=== PATIENT | male | born 2000 | race Caucasian/White ===

== ENCOUNTER 2020-04-02 20:01 | Emergency (ER) | payer BC, MEDICAID, SELFPAY ==
[2020-04-02 20:04] VITALS: BP 161/102; PULSE 105; RESP 18; TEMP 36.8; O2SAT 97; BMI 29.4
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
[2020-04-02 21:01] VITALS: PULSE 78
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
== END 2020-04-02 21:26 | disposition home or self-care (01) ==
PROVIDERS: Emergency Provider Nurse Practitioner Family
DX: S80.02XA Contusion of left knee, initial encounter (principal); V89.2XXA Person injured in unspecified motor-vehicle accident, traffic, initial encounter; F17.210 Nicotine dependence, cigarettes, uncomplicated
CPT/HCPCS: 12345; 73562; 99281; 99283

== ENCOUNTER → 2025-03-24 13:51 | Outpatient (BNVA) | payer OTHER, SELFPAY | DX: Z76.89 Persons encountering health services in other specified circumstances (principal) | CPT/HCPCS: 80053; 81000; 83036 ==

== ENCOUNTER → 2025-04-02 10:51 | Outpatient (BNVA) | payer OTHER, SELFPAY | DX: R35.0 Frequency of micturition (principal) | CPT/HCPCS: 81000; 87086; 87491; 87591; 87661; G0103 ==

== ENCOUNTER 2025-05-10 18:37 | Emergency (ER) | payer SELFPAY ==
[2025-05-10 18:54] VITALS: BP 127/82; PULSE 58; RESP 18; TEMP 36.7; O2SAT 96; BMI 27.1
--- NOTE | 2025-05-10 19:52 | ED_ITS ---
HPI - Nausea/Vomiting/Diarrhea 2 General: Chief complaint: Headache Stated complaint: n/v Time Seen by Provider: 05/10/25 19:36 Source: patient Mode of arrival: ambulatory Limitations: no limitations History of Present Illness: Patient is a 24-year-old male presents to ED today with a complaint of nausea and vomiting as well as a headache. He states nausea and vomiting have been present since earlier today. He has had approximately 4-5 episodes of nonbloody emesis. Looking at previous documentation, he saw Dr. Jimenez on 03/18 with a complaint of nausea and vomiting that had been ongoing over the past 8 weeks. He was placed on pantoprazole at that visit as well as nausea meds but states he just vomits them up. He was told he could have an ulcer which he doesn't believe because he never has abdominal pain with it. Patient states he is not having any abdominal pain currently. He reports normal bowel movements. He does report some urinary frequency that he has seen a primary care provider for as well. He states currently he has a headache. He states sometimes he will get headaches that he attributes to lack of caffeine. States he used to drink 12 sodas a day but has cut back to 5-6. States he has not had any caffeine today. Vital signs are stable upon arrival. Patient does use marijuana habitually-does state hot baths/showers help with his nausea. MD elicited complaint: nausea and vomiting Onset (ago): hour(s) Description of vomiting: food contents and watery Associated nausea: Yes Associated abdominal pain: No Location of pain: None Severity: moderate Exacerbating factors: none Relieving factors: none Associated symtoms: Reports headache(s) and nausea; Denies change in vision, chest pain, dizziness, dysuria, fatigue, malaise, palpitations or syncope Related Data Previous Rx's ?Medication ?Instructions ?Recorded pantoprazole 20 mg tablet,delayed 20 mg PO BID #60 tab s 03/24/25 release (Protonix) trazodone 50 mg tablet 50 mg PO .hs #30 tabs ciprofloxacin HCl 500 mg tablet 500 mg PO BID 4 weeks #56 tabs 04/02/25 (Cipro) ondansetron 4 mg disintegrating 4 mg PO Q8H PRN nausea and 05/10/25 tablet vomiting #15 tabs Allergies Allergy/AdvReac Type Severity Reaction Status Date / Time No Known Allergies Allergy Verified 04/02/25 10:35 Review of Systems 2 Const: Denies: fever(s), chills, body aches, fatigue or malaise Eyes: Denies: change in vision, blurry vision, photophobia, floaters or seeing flashes Card: Denies: chest pain, palpitations, irregular heart rhythm, lightheadedness, syncope or dyspnea on exertion Resp: Denies: dyspnea, productive cough or pain on inspiration GI: Reports: nausea and vomiting; Denies: abdominal pain, heartburn or diarrhea : Reports: urinary frequency; Denies: flank pain, difficulty urinating or dysuria Musc: Denies: neck pain, back pain or joint pain Skin/Breast: Denies: rash Neuro: Reports: headache(s); Denies: numbness in extremities, weakness in extremities, sensory changes, difficulty walking, dizziness, vertigo, confusion, behavioral changes or seizure-like activity PFSH ED 2 PFSH: Medical History Gastroesophageal reflux disease without esophagitis Surgical History History of tonsillectomy Family History Mother Diabetes Thyroid disease Social History Smoking and tobacco/nicotine status: current every day tobacco/nicotine user Alcohol intake: current Alcohol intake frequency: holidays/special occasions only Alcohol type: hard liquor Substance/Drug Use: former Physical Exam 2 Const: COMMON NORMALS: no acute distress, average body habitus, patient oriented x3, no limitations, healthy appearing, alert and well nourished G ENERAL APPEARANCE: cooperative ORIENTATION/CONSCIOUSNESS: Yes awake, Yes oriented to person, Yes oriented to place and Yes oriented to time HENMT: COMMON NORMALS: normocephalic and atraumatic HEAD & SCALP: n ormocephalic and atraumatic TEETH & GINGIVA: Yes poor dentition Eye: COMMON NORMALS: Equal, round and reactive pupils present and EOMs intact bilaterally GENERAL EYE: appearance normal, both eyes and all related structures and normal light reflex PUPIL: Yes Equal, round and reactive pupils present DIRECT OPHTHALMOSCOPY: Yes normal light reflex Neck/C-Spine: COMMON NORMALS: full ROM, no lymphadenopathy, supple and no meningeal signs Chest: COMMONS NORMALS: normal inspection of the chest Resp: COMMON NORMALS: normal respiratory effort and clear to auscultation bilaterally AUSCULTATION: clear to auscultation bilaterally Cardio: COMMON NORMALS: regular rate and regular rhythm RATE: regular rate RHYTHM: regular rhythm GI: COMMON NORMALS: Normal to inspection, nondistended, normoactive bowel sounds present, Soft to palpation, non-tender, No hepatosplenomegaly present and no masses PALPATION: Yes Soft to palpation and Yes No hepatosplenomegaly present OTHER: actively vomiting : COMMON NORMALS: Yes no CVA tenderness BLADDER/KIDNEY EXAM: Yes no CVA tenderness Back/Pelvis: COMMON NORMALS: no CVA tenderness and thoracic and lumbar spine normal to inspection Extremity: COMMON NORMALS: normal to inspection GENERAL: Yes normal exam except as noted Neuro: CHAVA COMA SCALE: document GCS findings Chava coma scale eye opening: Spontaneous Chava coma scale verbal response: Orientated [place] coma scale motor response: Obey commands Chava coma scale total score: 15 COMMON NORMALS: patient oriented x3, CN's II-XII intact bilaterally, moves all extremities, no focal motor deficits, no sensory deficits noted and gait normal SENSORIUM/ORIENTATION: Yes alert, Yes oriented to person, Yes oriented to place and Yes oriented to time MENINGEAL SIGNS: Yes no meningeal signs Skin: COMMON NORMALS: no rashes or lesions noted GENERAL SKIN EXAM: no rashes or lesions noted Course 2 Vital Signs: Vital signs: Vital Signs Temperature 98.0 F 05/10/25 18:54 Pulse Rate 58 L 05/10/25 18:54 Respiratory Rate 18 05/10/25 18:54 Blood Pressure 127/82 05/10/25 18:54 Pulse Oximetry 96 05/10/25 18:54 Oxygen Delivery Me thod Room Air 05/10/25 18:54 MDM - Nausea/Vomiting/Diarrhea Medical Decision Making Patient feeling better after IV fluids and nausea meds here. He has not had any further episodes of vomiting. His vital signs are stable. Blood work overall is nonactionable. He was not able to give us a urine sample. Suspect symptoms are probably related to his habitual marijuana use. He states he has been using almost daily since age of 10. Certainly his headache could be caffeine related. He states he will drink upwards of 12 sodas a day but has cut back to approximately 5 or 6. He has not had any caffeine today. I did have any suspicion for life-threatening etiology for his headache. He appears in no acute distress at time of discharge. Return to ED precautions discussed. Otherwise he can follow-up with primary care. Differential Diagnosis Likely dehydration Medical Records I reviewed the patient's medical records. Lab Data I reviewed the patient's lab results. 05/10/25 19:43 05/10/25 19:43 Laboratory Results WBC 15.70 10^3/uL (3.29-11.43) H 05/10/25 19:43 RBC 5.87 10^6/uL (3.85-5.65) H 05/10/25 19:43 Hgb 17.20 g/dL (11.27-16.99) H 05/10/25 19:43 Hct 49.2 % (37-53) 05/10/25 19:43 MCV 83.8 fl (82-101) 05/10/25 19:43 MCH 29.3 pg (27-33) 05/10/25 19:43 MCHC 35.0 g/dL (30-55) 05/10/25 19:43 RDW 11.9 % (12.1-15.1) L 05/10/25 19:43 Plt Count 200 10^3/cmm (157-399) 05/10/25 19:43 MPV 10.8 fL (7.4-10.4) H 05/10/25 19:43 Neut % (Auto) 80.6 % 05/10/25 19:43 Lymph % (Auto) 14.3 % 05/10/25 19:43 Power % (Auto) 4.1 % 05/10/25 19:43 Eos % (Auto) 0.2 % 05/10/25 19:43 Baso % (Auto) 0.3 % 05/10/25 19:43 Neut # (Auto) 12.66 10^3/uL (1.8-7.7) H 05/10/25 19:43 Lymph # (Auto) 2.3 10^3/uL (0.8-4.8) 05/10/25 19:43 Power # (Auto) 0.6 10^3/uL (0.2-0.9) 05/10/25 19:43 Eos # (Auto) 0.0 10^3/uL (0.0-0.8) 05/10/25 19:43 Baso # (Auto) 0.0 10^3/uL (0.0-0.1) 05/10/25 19:43 Nucleated RBC % (auto) 0 % 05/10/25 19:43 Nucleated RBCs # 0.0 /100WBC 05/10/25 19:43 Sodium 142 mmol/L (136-145) 05/10/25 19:43 Potassium 4.5 mmol/L (3.5-5.1) 05/10/25 19:43 Chloride 102 mmol/L (98-107) 05/10/25 19:43 Carbon Dioxide 28 mmol/L (22-29) 05/10/25 19:43 Anion Gap 16.5 (5-19) 05/10/25 19:43 BUN 8 mg/dL (6-20) 05/10/25 19:43 Creatinine 0.6 mg/dL (0.7-1.2) L 05/10/25 19:43 GFR Calculation 165.5 mL/min (90-130) H 05/10/25 19:43 Glucose 102 mg/dL (65-115) 05/10/25 19:43 Calculated Osmolality 293 mOsm/kg (285-295) 05/10/25 19:43 Calcium 9.9 mg/dL (8.5-10.5) 05/10/25 19:43 Total Bilirubin 0.5 mg/dL (0.15-1.2) 05/10/25 19:43 AST 15 U/L (0-40) 05/10/25 19:43 ALT 12 U/L (0-41) 05/10/25 19:43 Alkaline Phosphatase 100 U/L (40-130) 05/10/25 19:43 Total Protein 8.0 g/dL (6.6-8.7) 05/10/25 19:43 Albumin 5.0 g/dL (3.5-5.2) 05/10/25 19:43 Globulin 3.0 g/dL (1.3-4.6) 05/10/25 19:43 Lipase 19 U/L (13-60) 05/10/25 19:43 No radiology studies performed this visit Discharge Plan Discharge Patient Disposition: Home Clinical Impression: Nausea and vomiting Qualifiers: Vomiting type: unspecified Qualified Code(s): R11.2 - Nausea with vomiting, unspecified Condition: Stable Prescriptions: New ondansetron 4 mg tablet,disintegrating 4 mg PO Q8H PRN (Reason: nausea and vomiting) Qty: 15 0RF No Action pantoprazole [Protonix] 20 mg tablet,delayed release (DR/EC) 20 mg PO BID Qty: 60 0RF trazodone 50 mg tablet 50 mg PO .hs Qty: 30 0RF ciprofloxacin HCl [Cipro] 500 mg tablet 500 mg PO BID 28 Days Qty: 56 0RF Discharge Orders: Discharge ED (Routine); Ordered 05/10/25 Ordered By: Sabrina Love Referrals: Ivett Martin NP [Primary Care Provider, Family Practice] Patient Instructions: Patient Portal & Rebeca Instructions Activity Restrictions/Additional Instructions: As we discussed, you can try the disintegrating tablet to help with your nausea and vomiting. We discussed marijuana cessation. You can continue to follow-up with primary care. If symptoms do not improve, we spoke about potentially obtaining a referral to a GI specialist. You may return to the emergency department for any further concerns you may have. Print Language: Faroese Coding Level of Care Code ED [employer] Tipping Machine Tender for Jesse Ortega
[2025-05-10 19:57] LABS: Hematocrit 49.2 % (37-53); Hemoglobin 17.20 g/dL (11.27-16.99); Mean Corpuscular HGB Conc 35.0 g/dL (30-55); Mean Corpuscular Hemoglobin 29.3 pg (27-33); Mean Corpuscular Volume 83.8 fl (82-101); Nucleated Red Blood Cells % 0 %; Platelet Count 200 10^3/cmm (157-399); Red Blood Count 5.87 10^6/uL (3.85-5.65); White Blood Count 15.70 10^3/uL (3.29-11.43)
[2025-05-10] MEDS: ondansetron 2 mg/ML SDV 2 mL 4 MG IVP (20:10)
[2025-05-10 20:16] LABS: Alanine Aminotransferase 12 U/L (0-41); Albumin Level 5.0 g/dL (3.5-5.2); Alkaline Phosphatase 100 U/L (40-130); Anion Gap 16.5 (5-19); Aspartate Amino Transferase 15 U/L (0-40); Blood Urea Nitrogen 8 mg/dL (6-20); Calcium 9.9 mg/dL (8.5-10.5); Carbon Dioxide 28 mmol/L (22-29); Chloride 102 mmol/L (98-107); Creatinine Clr Calc Pharmacy 222.4601; Globulin 3.0 g/dL (1.3-4.6); Glucose 102 mg/dL (65-115); Lipase 19 U/L (13-60); Osmolality Calculated 293 mOsm/kg (285-295); Potassium 4.5 mmol/L (3.5-5.1); Sodium 142 mmol/L (136-145); Total Protein 8.0 g/dL (6.6-8.7)
[2025-05-10 21:45] VITALS: BP 131/83; PULSE 58; RESP 18; O2SAT 99
[2025-05-10 23:13] VITALS: BP 131/83; PULSE 58; RESP 18; O2SAT 99
== END 2025-05-10 21:45 | disposition home or self-care (01) ==
PROVIDERS: Emergency Provider Physician Assistant
DX: R11.2 Nausea with vomiting, unspecified (principal); Z72.0 Tobacco use
CPT/HCPCS: 36415; 80053; 83690; 85025; 96361; 96374; 99284; J2405; J7030; J9999